=== PATIENT | female | born 1945 | race Two or more races ===

== ENCOUNTER 2020-09-11 06:48 | Inpatient (IN) | payer MEDICAID, OTHER ==
[~2020-09-11] VITALS: Ht 154.9 cm; Wt 84.6 kg
[2020-09-11] MEDS ORDERED: ACETAMINOPHEN 500 MG TAB PO ONE (07:00)
[2020-09-11] MEDS ORDERED: SODIUM CHLORIDE 0.9% 1,000 ML IV ONE ×2 (07:15)
[2020-09-11] MEDS ORDERED: ONDANSETRON HCL 4 MG/2 ML VIAL ONE (07:21)
[2020-09-11 07:44] LABS: Basophils # (auto) 0.1 10 ^3/uL (0-0.2); Basophils % (auto) 0.4 % (0.0-2.0); Eosinophils # (auto) 0.1 10 ^3/uL (0-0.8); Lymphocytes # (auto) 2.5 10 ^3/uL (0.4-5.4); Lymphocytes % (auto) 19.3 % (10.0-50.0); Monocytes # (auto) 0.4 10 ^3/uL (0-1.3); Neutrophils % (auto) 76.5 % (37.0-80.0)
[2020-09-11 07:45] LABS: Eosinophils % (auto) 0.8 % (0.0-7.0); Hematocrit 35.4 % (36.0-46.0); Mean Corpuscular Hemoglobin 26.8 pg (28.0-32.0); Mean Corpuscular Hgb Conc. 33.9 g/dL (32.0-36.0); Mean Corpuscular Volume 79.1 fL (80.0-100.0); Red Blood Cells 4.48 10^6/uL (4.0-5.20); Red Cell Distribution Width 14.8 % (11.8-14.3); White Blood Cell 13.1 10^3/uL (4.4-10.8)
[2020-09-11] MEDS ORDERED: ONDANSETRON HCL 4 MG/2 ML VIAL IV ONE ×2 (07:45)
[2020-09-11 07:52] LABS: Calcium 9.3 mg/dL (8.5-10.1); Potassium 3.7 mmol/L (3.5-5.1)
[2020-09-11 07:56] LABS: BUN/Creatinine Ratio 18.1; Bilirubin, Total 0.5 mg/dL (0.2-1.0)
[2020-09-11 07:59] LABS: Lactic Acid w/Reflex 3.1 mmol/L (0.4-2.0)
[2020-09-11] MEDS ORDERED: cefTRIAXone 1GM/50ML D5W 50 ML IV ONE (08:30)
[2020-09-11] MEDS ORDERED: INSREG3 IV (08:40)
[2020-09-11] MEDS ORDERED: AMLO-412 PO (08:40)
[2020-09-11] MEDS ORDERED: NEBI5TAB2 PO (08:40)
[2020-09-11] MEDS ORDERED: ONDANSETRON HCL 4 MG/2 ML VIAL IV PRN (09:15)
[2020-09-11] MEDS ORDERED: DEXTROSE (50%) 50ML SYRG IV PRN (09:15)
[2020-09-11] MEDS ORDERED: NITROGLYCERIN 0.4 MG SL TAB SL PRN (09:15)
[2020-09-11] MEDS ORDERED: MORPHINE SULF INJ 2 MG/ML SYRINGE 1ML IV PRN ×2 (09:15)
[2020-09-11] MEDS ORDERED: IOHEXOL 300 MG/ML 100ML BOTTLE IJ ONE (09:20)
[2020-09-11 09:50] LABS: Urine Bacteria FEW /hpf (None Seen); Urine Blood Negative /uL (Negative); Urine Specific Gravity 1.011 (1.001-1.035); Urine WBC 1 /hpf (0 - 5)
[2020-09-11] MEDS ORDERED: IOHEXOL 350 MG/ML 100ML IJ ONE (10:19)
[2020-09-11] MEDS: ENOXAPARIN SOD 40 MG/0.4 ML SYRINGE SC SCH (11:37)
[2020-09-11] MEDS: SODIUM CHLORIDE 0.9% 1,000 ML IV SCH (11:38)
[2020-09-11] MEDS: ACCU-CHEK COMFORT CURVE STRIP VI SCH ×3 (11:41→22:57)
[2020-09-11] MEDS: InsuLIN REG 1unit/0.01ml Soln (100units/ml) SC SCH ×3 (11:48→22:57)
[2020-09-11] MEDS: PIPERACILLIN-TAZOB 3.375GM 100 ML IV SCH ×2 (12:23→20:12)
[2020-09-11] MEDS: ACETAMINOPHEN 500 MG TAB PO PRN (16:59)
[2020-09-11 18:47] VITALS: BP 135/58
[2020-09-11 22:00] VITALS: BP 140/79
[2020-09-11] MEDS ORDERED: VANCOMYCIN PER PHARMACY 0 MG IV SCH (22:30)
[2020-09-11] MEDS ORDERED: VANCOMYCIN 1GM/250ML 250 ML IV ONE (22:45)
[2020-09-11] MEDS: HYDROcodone-ACET 5/325MG TAB PO PRN (22:58)
[2020-09-12] MEDS: SODIUM CHLORIDE 0.9% 1,000 ML IV SCH ×2 (01:48→16:18)
[2020-09-12] MEDS: PIPERACILLIN-TAZOB 3.375GM 100 ML IV SCH ×3 (04:16→19:46)
[2020-09-12] MEDS: ACETAMINOPHEN 500 MG TAB PO PRN ×2 (04:56→19:52)
[2020-09-12 05:00] VITALS: BP 139/60
[2020-09-12 06:03] LABS: Basophils # (auto) 0 10 ^3/uL (0-0.2); Basophils % (auto) 0.2 % (0.0-2.0); Eosinophils # (auto) 0 10 ^3/uL (0-0.8); Hematocrit 32.3 % (36.0-46.0); Hemoglobin 11.1 g/dL (12.2-16.2); Lymphocytes % (auto) 9.4 % (10.0-50.0); Mean Corpuscular Hemoglobin 26.8 pg (28.0-32.0); Mean Corpuscular Hgb Conc. 34.3 g/dL (32.0-36.0); Mean Corpuscular Volume 78.4 fL (80.0-100.0); Monocytes # (auto) 0.4 10 ^3/uL (0-1.3); Monocytes % (auto) 3.5 % (0.0-12.0); Neutrophils # (auto) 9.5 10 ^3/uL (1.6-8.6); Neutrophils % (auto) 86.9 % (37.0-80.0); Nucleated Red Blood Cells % 0.1 %; Red Blood Cells 4.12 10^6/uL (4.0-5.20); White Blood Cell 10.9 10^3/uL (4.4-10.8)
[2020-09-12 06:20] LABS: Potassium 3.7 mmol/L (3.5-5.1)
[2020-09-12] MEDS: InsuLIN REG 1unit/0.01ml Soln (100units/ml) SC SCH ×4 (06:20→21:14)
[2020-09-12] MEDS: ACCU-CHEK COMFORT CURVE STRIP VI SCH ×4 (06:21→21:12)
[2020-09-12 06:31] LABS: Albumin 2.9 g/dL (3.4-5.0); BUN/Creatinine Ratio 16.4; Bilirubin, Total 0.5 mg/dL (0.2-1.0); Total Protein 6.3 g/dL (6.4-8.2)
[2020-09-12 09:00] VITALS: BP 115/50
[2020-09-12] MEDS: ENOXAPARIN SOD 40 MG/0.4 ML SYRINGE SC SCH (10:31)
[2020-09-12] MEDS: VANCOMYCIN 1GM/250ML 250 ML IV SCH (10:32)
[2020-09-12 13:00] VITALS: BP 114/50
[2020-09-12 17:00] VITALS: BP 138/63
[2020-09-12] MEDS: METOPROLOL TARTRATE 25 MG TAB PO SCH (21:12)
[2020-09-12 21:26] LABS: Alcohol, Urine < 3.0 mg/dL (0-10); Amphetamine Screen, Urine NEGATIVE (NEGATIVE); Barbiturate Scree,Urine NEGATIVE (NEGATIVE); Benzodiazephine Screen, Urine NEGATIVE (NEGATIVE); Cannabinoid Screen, Urine NEGATIVE (NEGATIVE); Cocaine Screen, Urine NEGATIVE (NEGATIVE); Opiate Scree,Urine NEGATIVE (NEGATIVE); Phencyclidine Screen, Urine NEGATIVE (NEGATIVE)
[2020-09-12 22:00] VITALS: BP 125/59
[2020-09-12] MEDS ORDERED: INSULIN LANTUS (GLARGINE) 1 /0.01ml (100units/ml) SC SCH (22:00)
[2020-09-13] MEDS: SODIUM CHLORIDE 0.9% 1,000 ML IV SCH ×2 (02:30→14:30)
[2020-09-13] MEDS: PIPERACILLIN-TAZOB 3.375GM 100 ML IV SCH ×3 (03:49→19:43)
[2020-09-13 04:48] VITALS: BP 142/59
[2020-09-13] MEDS: ACETAMINOPHEN 500 MG TAB PO PRN ×2 (05:51→19:56)
[2020-09-13] MEDS: ACCU-CHEK COMFORT CURVE STRIP VI SCH ×4 (06:10→21:51)
[2020-09-13 06:17] LABS: Hemoglobin 10.8 g/dL (12.2-16.2); Monocytes # (auto) 0.3 10 ^3/uL (0-1.3)
[2020-09-13 06:19] LABS: Basophils # (auto) 0 10 ^3/uL (0-0.2); Basophils % (auto) 0.4 % (0.0-2.0); Eosinophils # (auto) 0 10 ^3/uL (0-0.8); Eosinophils % (auto) 0.3 % (0.0-7.0); Hematocrit 31.3 % (36.0-46.0); Lymphocytes # (auto) 1.6 10 ^3/uL (0.4-5.4); Lymphocytes % (auto) 17.8 % (10.0-50.0); Mean Corpuscular Hemoglobin 27.1 pg (28.0-32.0); Mean Corpuscular Hgb Conc. 34.6 g/dL (32.0-36.0); Mean Corpuscular Volume 78.4 fL (80.0-100.0); Monocytes % (auto) 3.6 % (0.0-12.0); Neutrophils % (auto) 77.9 % (37.0-80.0); Nucleated Red Blood Cells % 0.1 %; Red Blood Cells 3.99 10^6/uL (4.0-5.20)
[2020-09-13] MEDS: InsuLIN REG 1unit/0.01ml Soln (100units/ml) SC SCH ×4 (06:30→21:52)
[2020-09-13 06:35] LABS: Magnesium 1.9 mg/dL (1.6-2.6); Potassium 3.5 mmol/L (3.5-5.1)
[2020-09-13 06:40] LABS: Albumin 2.7 g/dL (3.4-5.0); BUN/Creatinine Ratio 16.3; Bilirubin, Total 0.4 mg/dL (0.2-1.0); Calcium 8.1 mg/dL (8.5-10.1); Total Protein 6.4 g/dL (6.4-8.2)
[2020-09-13] MEDS: VANCOMYCIN 1GM/250ML 250 ML IV SCH (08:40)
[2020-09-13 09:00] VITALS: BP 128/53
[2020-09-13] MEDS: METOPROLOL TARTRATE 25 MG TAB PO SCH ×2 (09:48→21:33)
[2020-09-13] MEDS: ENOXAPARIN SOD 40 MG/0.4 ML SYRINGE SC SCH (09:48)
[2020-09-13] MEDS ORDERED: MAGNESIUM SULFATE 1GM/100ML 100 ML IV ONE (10:30)
[2020-09-13] MEDS: HYDROcodone-ACET 5/325MG TAB PO PRN ×2 (11:38→21:43)
[2020-09-13 13:00] VITALS: BP 137/73
[2020-09-13 16:45] VITALS: BP 155/71
[2020-09-13] MEDS: LABETALOL HCL 5 MG/ML 4ML SYRINGE IV PRN (17:53)
[2020-09-13 22:00] VITALS: BP 134/57
[2020-09-13] MEDS ORDERED: INSULIN LANTUS (GLARGINE) 1 /0.01ml (100units/ml) SC SCH (22:00)
[2020-09-14] MEDS: SODIUM CHLORIDE 0.9% 1,000 ML IV SCH ×2 (03:24→22:11)
[2020-09-14] MEDS: PIPERACILLIN-TAZOB 3.375GM 100 ML IV SCH ×3 (03:30→11:43)
[2020-09-14 05:13] VITALS: BP 108/83
[2020-09-14] MEDS: ACCU-CHEK COMFORT CURVE STRIP VI SCH ×4 (06:06→21:46)
[2020-09-14] MEDS: InsuLIN REG 1unit/0.01ml Soln (100units/ml) SC SCH ×4 (06:07→21:49)
[2020-09-14 08:55] LABS: Basophils # (auto) 0 10 ^3/uL (0-0.2); Eosinophils # (auto) 0 10 ^3/uL (0-0.8); Eosinophils % (auto) 0.1 % (0.0-7.0); Hemoglobin 11.3 g/dL (12.2-16.2); Monocytes # (auto) 0.4 10 ^3/uL (0-1.3); Nucleated Red Blood Cells % 0.1 %; White Blood Cell 9.2 10^3/uL (4.4-10.8)
[2020-09-14 08:56] LABS: Basophils % (auto) 0.5 % (0.0-2.0); Hematocrit 33.6 % (36.0-46.0); Lymphocytes # (auto) 1.5 10 ^3/uL (0.4-5.4); Lymphocytes % (auto) 16.1 % (10.0-50.0); Mean Corpuscular Hemoglobin 26.4 pg (28.0-32.0); Mean Corpuscular Hgb Conc. 33.6 g/dL (32.0-36.0); Mean Corpuscular Volume 78.6 fL (80.0-100.0); Monocytes % (auto) 4.3 % (0.0-12.0); Neutrophils # (auto) 7.3 10 ^3/uL (1.6-8.6); Red Blood Cells 4.27 10^6/uL (4.0-5.20); Red Cell Distribution Width 14.9 % (11.8-14.3)
[2020-09-14 09:00] VITALS: BP 157/71
[2020-09-14 09:14] LABS: BUN/Creatinine Ratio 12.2; Calcium 8.3 mg/dL (8.5-10.1); Magnesium 2.3 mg/dL (1.6-2.6); Potassium 3.7 mmol/L (3.5-5.1)
[2020-09-14] MEDS: PANTOPRAZOLE 40 MG TAB PO SCH (09:17)
[2020-09-14] MEDS: ENOXAPARIN SOD 40 MG/0.4 ML SYRINGE SC SCH (09:17)
[2020-09-14] MEDS: VANCOMYCIN 1GM/250ML 250 ML IV SCH (09:45)
[2020-09-14] MEDS: METOPROLOL TARTRATE 25 MG TAB PO SCH ×2 (09:46→21:42)
[2020-09-14] MEDS ORDERED: CEFTRIAXONE SODIUM 2 GM in D5W 5% 50 ML IV ONE (12:45)
[2020-09-14 13:00] VITALS: BP 138/61
[2020-09-14] MEDS: HYDROcodone-ACET 5/325MG TAB PO PRN (16:21)
[2020-09-14 17:00] VITALS: BP 129/57
[2020-09-14 21:38] VITALS: BP 156/69
[2020-09-14] MEDS: INSULIN LANTUS (GLARGINE) 1 /0.01ml (100units/ml) SC SCH (21:46)
[2020-09-15 05:00] VITALS: BP 131/65
[2020-09-15] MEDS: ACCU-CHEK COMFORT CURVE STRIP VI SCH ×4 (06:30→21:39)
[2020-09-15] MEDS: InsuLIN REG 1unit/0.01ml Soln (100units/ml) SC SCH ×4 (06:38→21:40)
[2020-09-15 09:00] VITALS: BP 157/78
[2020-09-15] MEDS: CEFTRIAXONE SODIUM 2 GM in D5W 5% 50 ML IV SCH (09:40)
[2020-09-15] MEDS: METOPROLOL TARTRATE 25 MG TAB PO SCH ×2 (09:41→21:39)
[2020-09-15] MEDS: ENOXAPARIN SOD 40 MG/0.4 ML SYRINGE SC SCH (09:41)
[2020-09-15] MEDS: PANTOPRAZOLE 40 MG TAB PO SCH (09:41)
[2020-09-15 13:00] VITALS: BP 130/70
[2020-09-15 17:00] VITALS: BP 149/75
[2020-09-15] MEDS: INSULIN LANTUS (GLARGINE) 1 /0.01ml (100units/ml) SC SCH (21:40)
[2020-09-15 22:00] VITALS: BP 153/58
[2020-09-16 05:05] VITALS: BP 131/61
[2020-09-16] MEDS: ACCU-CHEK COMFORT CURVE STRIP VI SCH ×4 (06:22→21:50)
[2020-09-16] MEDS: InsuLIN REG 1unit/0.01ml Soln (100units/ml) SC SCH ×4 (06:22→21:51)
[2020-09-16 06:36] VITALS: BP 139/73
[2020-09-16 09:10] VITALS: BP 139/70
[2020-09-16] MEDS: CEFTRIAXONE SODIUM 2 GM in D5W 5% 50 ML IV SCH (09:41)
[2020-09-16] MEDS: METOPROLOL TARTRATE 25 MG TAB PO SCH ×2 (09:42→21:51)
[2020-09-16] MEDS: ENOXAPARIN SOD 40 MG/0.4 ML SYRINGE SC SCH (09:42)
[2020-09-16] MEDS: PANTOPRAZOLE 40 MG TAB PO SCH (09:42)
[2020-09-16] MEDS ORDERED: amLODIPine BESYLATE 5 MG TAB PO ONE (12:00)
[2020-09-16 13:00] VITALS: BP 154/63
[2020-09-16 16:42] VITALS: BP 123/72
[2020-09-16] MEDS: INSULIN LANTUS (GLARGINE) 1 /0.01ml (100units/ml) SC SCH (21:50)
[2020-09-16 22:00] VITALS: BP 162/75
[2020-09-17 05:00] VITALS: BP 157/75
[2020-09-17] MEDS: ACCU-CHEK COMFORT CURVE STRIP VI SCH ×3 (06:37→16:42)
[2020-09-17] MEDS: InsuLIN REG 1unit/0.01ml Soln (100units/ml) SC SCH ×3 (06:37→16:42)
[2020-09-17] MEDS: LABETALOL HCL 5 MG/ML 4ML SYRINGE IV PRN (06:50)
[2020-09-17 08:57] VITALS: BP 138/77
[2020-09-17] MEDS: CEFTRIAXONE SODIUM 2 GM in D5W 5% 50 ML IV SCH (09:32)
[2020-09-17] MEDS: PANTOPRAZOLE 40 MG TAB PO SCH (09:33)
[2020-09-17] MEDS: ENOXAPARIN SOD 40 MG/0.4 ML SYRINGE SC SCH (09:33)
[2020-09-17] MEDS: METOPROLOL TARTRATE 25 MG TAB PO SCH (09:33)
[2020-09-17] MEDS ORDERED: amLODIPine BESYLATE 5 MG TAB PO SCH (10:00)
[2020-09-17] MEDS ORDERED: AMPI500C8 PO (12:09)
[2020-09-17 12:57] VITALS: BP 161/69
[2020-09-17 14:01] VITALS: BP 143/72
== END 2020-09-17 17:40 | disposition home or self-care (01) | DRG 720 ==
LOC: ER 06:48 → TELE 09:09 → TELE-WESTW 17:34
PROVIDERS: ADMIT Nurse Practitioner Acute Care; ATTEND Internal Medicine Pulmonary Disease
DX: A40.8 Other streptococcal sepsis (principal); J96.01 Acute respiratory failure with hypoxia; I80.232 Phlebitis and thrombophlebitis of left tibial vein; K55.1 Chronic vascular disorders of intestine; N17.9 Acute kidney failure, unspecified; E11.22 Type 2 diabetes mellitus with diabetic chronic kidney disease; N18.31 Chronic kidney disease, stage 3a; I77.4 Celiac artery compression syndrome; J98.11 Atelectasis; N12 Tubulo-interstitial nephritis, not specified as acute or chronic; E66.9 Obesity, unspecified; E78.5 Hyperlipidemia, unspecified; Z86.73 Personal history of transient ischemic attack (TIA), and cerebral infarction without residual deficits; Z68.35 Body mass index [BMI] 35.0-35.9, adult; I12.9 Hypertensive chronic kidney disease with stage 1 through stage 4 chronic kidney disease, or unspecified chronic kidney disease; Z20.822 Contact with and (suspected) exposure to COVID-19; Z79.4 Long term (current) use of insulin; Z82.49 Family history of ischemic heart disease and other diseases of the circulatory system; Z83.3 Family history of diabetes mellitus; Z79.899 Other long term (current) drug therapy
CPT/HCPCS: 36415; 36600; 51702; 70450; 71045; 71260; 74177; 80048; 80053; 80061; 80202; 80307; 81001; 82728; 82805; 82962; 83036; 83605; 83615; 83735; 83880; 84443; 84484; 85025; 85379; 86141; 87040; 87077; 87086; 87186; 87426; 87804; 87807; 93005; 93306; 93970; 96361; 96365; 96372; 96375; 97110; 97116; 97530; G0378; J0696; J1815; J2405; J2543; J3490; J7060